=== PATIENT | female | born 1955 | race Caucasian/White ===

== ENCOUNTER → 2018-06-12 13:00 | Outpatient (CLI) | payer BC, SELFPAY | PROVIDERS: PCP Nurse Practitioner; Visit Provider Orthopaedic Surgery | DX: G56.01 Carpal tunnel syndrome, right upper limb (principal); Z01.818 Encounter for other preprocedural examination ==

== ENCOUNTER 2018-07-13 10:19 | Day surgery (SDC) | payer BC, SELFPAY ==
[2018-07-13 10:34] VITALS: BP 131/89; PULSE 99; RESP 15; TEMP 36.3; O2SAT 99
[2018-07-13] MEDS: Lactated Ringers 1,000 ML 80 ML IV (11:19)
--- NOTE | 2018-07-13 12:55 | W.PM.DSUDISC ---
Discharge Plan Disposition Patient Disposition: HOME Condition: Good Discharge Details Reason For Visit: (L) CTS Attending Provider: Epi Ngo Primary Care Provider: Danielle Ball Home Meds and New Rx's Prescriptions: New hydrocodone-acetaminophen 5-325 mg Tablet 1 tab PO Q6H PRN PRN (Reason: Pain) Qty: 0 RF: 0 No Action multivitamin [Daily Multiple] 1 EACH tablet 1 ea PO DAILY RF: 0 cyclobenzaprine 10 MG tablet 10 mg PO HS PRNRF: 0 ibuprofen 800 MG tablet 800 mg PO TID PRNRF: 0 calcium carbonate-vitamin D3 1 EACH tablet 1 ea PO DAILY RF: 0 cholecalciferol (vitamin D3) 1,000 UNIT capsule 1,000 unit PO DAILY RF: 0 escitalopram oxalate 20 MG tablet 20 mg PO DAILY RF: 0 omega-3 fatty acids-fish oil [Fish Oil] 1 EACH capsule 1 ea PO DAILY RF: 0 calcium polycarbophil [Fiber-Tabs] 625 MG tablet 625 mg PO DAILY RF: 0 alprazolam 1 MG tablet extended release 24 hr 1 mg PO HS RF: 0 vitamin B complex [B-Complex] 1 EACH tablet 1 ea PO DAILY RF: 0 aspirin 325 MG tablet 325 mg PO DAILY RF: 0 hydrocodone-acetaminophen 1 EACH tablet 1 tab PO Q6H PRN PRNQty: 7 RF: 0 Discharge Instructions Additional Instructions: Elevate L hand above heart level as much as possible overnite tonite. Wiggle fingers 10 times/hour when awake to prevent swelling. Your fingers may stay numb for 24 hours due to nerve block I put in to decrease post-op pain. Remove splint AND dressings after 48 hours and begin to move L wrist. May shower or bathe and get incision wet after you remove dressings in 48 hours. Leave incision uncovered when it is dry and sealed. Use L hand as much as your discomfort allows. Follow up in 's office in 10-14 days. Referrals: Epi Ngo MD [ [facility]] - (Follow up in 10-14 days.) Equipment/Supplies: Splint Activity:: Activity as Tolerated Remove Dressings/Wound Care:: 48 hours Shower/Bathe:: 48 hours Discharge Orders Discharge Orders: Discharge Order (Routine); Ordered 07/13/18 Ordered By: Epi Ngo DS: Diagnosis Discharge Diagnosis (1) Carpal tunnel syndrome, left: Status: Acute
[2018-07-13 13:29] VITALS: BP 139/88; PULSE 72; RESP 17; TEMP 36.4; O2SAT 99
--- NOTE | 2018-07-13 17:17 | ROE_ITS ---
DATE OF PROCEDURE: July 13, 2018 PREOPERATIVE DIAGNOSIS: Carpal tunnel syndrome left. POSTOPERATIVE DIAGNOSIS: Same. PROCEDURE: Left endoscopic carpal tunnel release. ANESTHESIA: IV Regional. SURGEON: Epi Ngo M.D. INDICATIONS: This is a 62-year-old white female with longstanding symptoms of carpal tunnel syndrome on the left. This is now interfering with her activities of daily living. She has undergone a succ essful endoscopic carpal tunnel release on the right about a month ago. She is so pleased with the r esults from the right side she now is asking to have an endoscopic carpal tunnel release on the left. The risks and complications of the procedure were explained to the patient in detail preoperatively . PROCEDURE: The patient was taken to the operating room on 07/13/18 and placed supine on the operating table. An IV regional anesthetic was administered to the left upper extremity. Once good anesthesi a was obtained, the left hand, wrist and forearm were prepped and draped free in the usual sterile fa shion. A transverse incision was made in line with the proximal flexion crease of the wrist beginning at the flexor carpi radialis tendon extending to the flexor carpi ulnaris tendon. The incision was carried down to the fascia. The palmaris longus tendon was retracted radially and a distally-based fascial flap is created to gain access to the carpal tunnel. The synovial reflector was used to free up any synovial attachments to the undersurface of the volar carpal ligament and a series of obturators were inserted to make room for the endoscope. The Shelli endoscope blade device was inserted in the carpal canal. The endoscope was positioned on the ulnar side of the canal and is advanced until the distal edge of the volar carpal ligament is clearly seen. At this point the trigger is depressed, elevatin g the blade and the elevator blade is brought out proximally through the incision, transecting the vo lar carpal ligament. Littler scissors were then used to perform a subcutaneous fasciotomy in a proxi mal direction from the incision for about the distance of two inches. A median nerve block was perfo rmed with 0.5% Marcaine with an epinephrine solution and the skin edges were infiltrated with 0.5% Ma rcaine with an epinephrine solution. The skin edges are approximated with two horizontal mattress torres tures of #4-0 nylon suture material. The wound was dressed with Xeroform gauze, sterile gauze 4x4's, wrapped with a Kerlix bandage and then wrapped with an Osman bandage. A commercial cock-up splint is applied over the dressings. The patient's IV regional anesthesia was reversed without complication. Blood loss was minimal. She was discharged to recovery room in good condition. The patient was discharged home from the Day Surgery Unit when fully recovered from her IV regional a nesthesia. She was given instructions to elevate her left hand above heart level as much as possible overnight tonight. She is encouraged to wiggle her fingers ten times an hour to prevent swelling. She is to remove her splint and dressings in 48 hours and begin to move her left wrist. She may show er or bathe and get her incision wet after 48 hours. She is to leave the incision uncovered when it is dry and sealed. She may use her left hand as much as discomfort allows. She was given a prescrip tion for pain of Hydrocodone with APAP 5/325 one tablet every six hours if needed for pain unrelieved by ibuprofen or Tylenol. She will follow-up in my office in 10 to 14 days.
== END 2018-07-13 12:51 | disposition home or self-care (01) ==
PROVIDERS: PCP Nurse Practitioner; Visit Provider Orthopaedic Surgery
PROC: 01N54ZZ Release Median Nerve, Percutaneous Endoscopic Approach (ICD-10-PCS; CPT 29848; principal; 2018-07-13 11:25)
DX: G56.02 Carpal tunnel syndrome, left upper limb (principal)
CPT/HCPCS: 29848; J0690; J1100; J1885; J2250; J2405; J3010; L3908

== ENCOUNTER 2021-06-13 09:56 | Outpatient (REF) | payer BC, SELFPAY ==
--- NOTE | 2021-06-13 09:15 | PAPFT_PTH ---
PATIENT: Fran Sauceda LOC: [facility]#:[id number] AGE/SX: 65/F ROOM: RE06/13/[address]: Danielle Ball : 1955 BED: DIS: 06/13/2021 SPEC #: [id number] RECD: 06/14/21 12:45 STATUS: LESLI REQ #: [id number] CAMERON: 06/13/21 09:[address]: Danielle Ball DEPT: COUNTS INCLUDE 234 BEDS AT THE [facility] Cytology RECD BY: Nati Lr Tissues: 1 - CX/ENDOCX FOR PAP SMEARS Procedures: PAP THIN PREP/UVM Screening HPV DNA PROBE Comments: [id number]
== END 2021-06-13 09:57 | disposition home or self-care (01) ==
LOC: LBN 09:56
PROVIDERS: PCP Nurse Practitioner; Visit Provider Nurse Practitioner
DX: Z00.00 Encounter for general adult medical examination without abnormal findings (principal); Z12.4 Encounter for screening for malignant neoplasm of cervix; Z11.51 Encounter for screening for human papillomavirus (HPV)
CPT/HCPCS: 88142; 87624

== ENCOUNTER 2022-06-17 16:17 | Outpatient (REF) | payer OTHER, SELFPAY ==
[2022-06-17 19:48] LABS: ALT 30 U/L (14-59); AST 20 U/L (15-37); Albumin 3.9 g/dL (3.4-5.0); Alkaline Phosphatase 66 U/L (46-116); Anion Gap 12.1 mmol/L (3-11); BUN 14 mg/dL (7-18); Bilirubin, Total 0.2 mg/dL (0.2-1.0); CO2 27.9 mmol/L (21.0-32.0); CREATININE 0.7 mg/dL (0.55-1.02); Calculated LDL 110 mg/dL (<100); Chloride 103 mmol/L (98-107); Cholesterol 207 mg/dL (<200); Glucose 100 mg/dL (74-106); HDL Cholesterol 75 mg/dL (40-60); Potassium 3.8 mmol/L (3.5-5.1); Sodium 143 mmol/L (136-145); Total Protein 7.4 g/dL (6.4-8.2); Triglyceride 111 mg/dL (<150)
== END 2022-06-17 16:18 | disposition home or self-care (01) ==
LOC: NCHCN 16:17
PROVIDERS: PCP Nurse Practitioner; Visit Provider Nurse Practitioner Family
DX: Z00.00 Encounter for general adult medical examination without abnormal findings (principal); M54.59 Other low back pain; M79.602 Pain in left arm; M25.561 Pain in right knee
CPT/HCPCS: 80053; 80061

== ENCOUNTER 2023-03-24 15:06 | Outpatient (REF) | payer MEDICARE, SELFPAY ==
[2023-03-24 15:37] LABS: Abs Immature Grans 0.01 10^3/uL (0.0-0.06); Absolute Basophil Count 0.05 10^3/uL (0.0-0.2); Absolute Eosinophil Count 0.21 10^3/uL (0.0-0.7); Absolute Monocyte Count 0.49 10^3/uL (0.1-0.8); Absolute Neutrophil Count 2.31 10^3/uL (1.2-6.7); Basophils % 1.2; Eosinophils % 4.9; HCT 33.6 % (36.0-46.0); HGB 10.4 g/dL (11.2-15.7); Immature Grans % 0.2; Lymphocytes % 28.1; MCH 26.1 pg (27.0-33.0); MCV 84 fL (80-95); MPV 12.2 fL (8.0-11.0); Monocytes % 11.5; Neutrophils % 54.1; Platelet Count 316 10^3/uL (130-400); RBC 3.98 10^6/uL (3.93-5.22); RDW 15.7 % (11.7-14.6); RDW-SD 48.2 fL; WBC 4.27 10^3/uL (4.4-10.8)
[2023-03-24 16:52] LABS: Iron 62 ug/dL (50-170); Total Iron Binding Capacity 472 ug/dL (250-450); Transferrin Sat 13 % (15-50)
[2023-03-24 17:35] LABS: ALT 24 U/L (14-59); AST 20 U/L (15-37); Albumin 4.1 g/dL (3.4-5.0); Alkaline Phosphatase 74 U/L (46-116); Anion Gap 8.3 mmol/L (3-11); BUN 12 mg/dL (7-18); Bilirubin, Total 0.4 mg/dL (0.2-1.0); CO2 28.7 mmol/L (21.0-32.0); CREATININE 0.8 mg/dL (0.55-1.02); Calcium 9.3 mg/dL (8.5-10.1); Chloride 104 mmol/L (98-107); Estimated GFR 81.72 (mL/min/1.73m2); Ferritin 11 ng/mL (8-252); Glucose 89 mg/dL (74-106); Potassium 4.2 mmol/L (3.5-5.1); Sodium 141 mmol/L (136-145); Total Protein 7.4 g/dL (6.4-8.2); Vitamin B12 469 pg/mL (193-986)
== END 2023-03-24 15:07 | disposition home or self-care (01) ==
LOC: NCHCN 15:06
PROVIDERS: PCP Nurse Practitioner; Visit Provider Nurse Practitioner Family
DX: R10.11 Right upper quadrant pain (principal); K82.8 Other specified diseases of gallbladder; D64.9 Anemia, unspecified; K21.9 Gastro-esophageal reflux disease without esophagitis; R19.7 Diarrhea, unspecified; Z86.39 Personal history of other endocrine, nutritional and metabolic disease
CPT/HCPCS: 80053; 82607; 82728; 83540; 83550; 85025

== ENCOUNTER → 2023-04-11 08:15 | Outpatient (BNVA) | payer MEDICARE, SELFPAY | PROVIDERS: PCP Nurse Practitioner; Referring Provider Nurse Practitioner; Visit Provider Surgery | DX: K52.9 Noninfective gastroenteritis and colitis, unspecified (principal); K82.9 Disease of gallbladder, unspecified; K82.8 Other specified diseases of gallbladder; K52.832 Lymphocytic colitis; K22.70 Barrett's esophagus without dysplasia | CPT/HCPCS: 99203; 99205 ==

== ENCOUNTER → 2023-04-28 08:22 | Outpatient (BNVA) | payer MEDICARE, SELFPAY | PROVIDERS: PCP Nurse Practitioner Family; Referring Provider Nurse Practitioner Family; Visit Provider Surgery | DX: R19.7 Diarrhea, unspecified (principal); K82.8 Other specified diseases of gallbladder | CPT/HCPCS: 99213 ==

== ENCOUNTER 2023-06-30 15:21 | Outpatient (REF) | payer MEDICARE, SELFPAY ==
[2023-06-30 15:53] LABS: Abs Immature Grans 0.01 10^3/uL (0.0-0.06); Absolute Basophil Count 0.04 10^3/uL (0.0-0.2); Absolute Eosinophil Count 0.31 10^3/uL (0.0-0.7); Absolute Lymphocyte Count 1.62 10^3/uL (1.2-3.4); Absolute Monocyte Count 0.46 10^3/uL (0.1-0.8); Absolute Neutrophil Count 3.04 10^3/uL (1.2-6.7); Basophils % 0.7; Eosinophils % 5.7; HCT 39.2 % (36.0-46.0); Immature Grans % 0.2; Lymphocytes % 29.6; MCH 30.2 pg (27.0-33.0); MCHC 33.2 % (32.0-36.0); MCV 91 fL (80-95); MPV 12.6 fL (8.0-11.0); Monocytes % 8.4; Neutrophils % 55.4; Platelet Count 305 10^3/uL (130-400); RBC 4.31 10^6/uL (3.93-5.22); RDW 14.8 % (11.7-14.6); RDW-SD 50.2 fL; WBC 5.48 10^3/uL (4.4-10.8)
[2023-06-30 16:03] LABS: ESR 6 mm/hr (0-30)
[2023-06-30 16:35] LABS: Iron 301 ug/dL (50-170); Total Iron Binding Capacity 381 ug/dL (250-450); Transferrin Sat 79 % (15-50)
[2023-06-30 16:55] LABS: Vitamin D 25 Total 53.2 ng/mL (30-100)
[2023-06-30 17:09] LABS: ALT 25 U/L (14-59); AST 19 U/L (15-37); Albumin 4.3 g/dL (3.4-5.0); Alkaline Phosphatase 74 U/L (46-116); Anion Gap 8.2 mmol/L (3-11); BUN 10 mg/dL (7-18); Bilirubin, Total 0.4 mg/dL (0.2-1.0); CO2 28.8 mmol/L (21.0-32.0); CREATININE 0.7 mg/dL (0.55-1.02); Calcium 9.4 mg/dL (8.5-10.1); Chloride 104 mmol/L (98-107); Estimated GFR 95.92 (mL/min/1.73m2); Ferritin 25 ng/mL (8-252); Glucose 101 mg/dL (74-106); Potassium 4.5 mmol/L (3.5-5.1); Sodium 141 mmol/L (136-145); TSH (W/Ref FT4) 1.82 uIU/mL (0.36-3.74); Total Protein 7.3 g/dL (6.4-8.2); Vitamin B12 501 pg/mL (193-986)
[2023-06-30 17:27] LABS: C-Reactive Protein 0.09 mg/dL (0.0-0.3)
== END 2023-06-30 15:22 | disposition home or self-care (01) ==
LOC: NCHCN 15:21
PROVIDERS: PCP Nurse Practitioner Family; Visit Provider Nurse Practitioner Family
DX: R53.83 Other fatigue (principal); D64.9 Anemia, unspecified; F41.8 Other specified anxiety disorders; K58.9 Irritable bowel syndrome, unspecified; G47.33 Obstructive sleep apnea (adult) (pediatric); Z79.899 Other long term (current) drug therapy
CPT/HCPCS: 80053; 82306; 85652; 82607; 82728; 83540; 83550; 84443; 85025; 86140

== ENCOUNTER 2023-07-24 10:05 | Outpatient (CLI) | payer MEDICARE, SELFPAY ==
--- NOTE | 2023-07-24 09:15 | DI.RAD_ITS ---
Exam(s) XR KNEE RT 3V AP,LAT,RENATO EXAM: XR KNEE RT 3V AP,LAT,RENATO CLINICAL HISTORY: right knee pain. TECHNIQUE: 2D digital imaging was performed of the right knee. Three views obtained. Merchant, AP, l ateral and PA tunnel views were obtained. COMPARISON: No exams were available for comparison FINDINGS: BONES: No acute fracture is present. No bony destructive lesion is seen. JOINTS: The knee is normally aligned. No joint effusion is seen. There is a well corticated density a djacent to the lateral tibial spine which may represent a loose body. SOFT TISSUE: Normal. IMPRESSION: No acute abnormality. DATA REPOSITORY: RADIATION DOSE DELIVERED:
--- NOTE | 2023-07-24 09:15 | DI.RAD_ITS ---
Exam(s) XR HIP RT COMPLETE AP PELVIS EXAM: XR HIP RT COMPLETE AP PELVIS CLINICAL HISTORY: right knee pain. TECHNIQUE: 2D digital imaging was performed of the right hip. Two images were obtained. AP pelvis a nd lateral right hip views were obtained. COMPARISON: CR LEFT HIP COMPLETE from 07/17/2011 FINDINGS: BONES: No acute fracture is present. No bony destructive lesion is seen. JOINTS: No dislocation present. Mild degenerative changes are seen in the hips bilaterally. The sacr oiliac joints and symphysis pubis are unremarkable. SOFT TISSUE: Normal. IMPRESSION: Mild degenerative changes in the hips bilaterally. DATA REPOSITORY: RADIATION DOSE DELIVERED:
== END 2023-07-24 10:06 | disposition home or self-care (01) ==
LOC: DIORS 10:05
PROVIDERS: PCP Nurse Practitioner Family; Referring Provider Nurse Practitioner Family
DX: M17.11 Unilateral primary osteoarthritis, right knee; M76.31 Iliotibial band syndrome, right leg; M70.61 Trochanteric bursitis, right hip
CPT/HCPCS: 20610; 73562; 99213; 73502; J1040

== ENCOUNTER → 2024-04-01 08:11 | Outpatient (BNVA) | payer MEDICARE, SELFPAY | PROVIDERS: PCP Nurse Practitioner Family; Referring Provider Nurse Practitioner Family; Visit Provider Student in an Organized Health Care Education/Training Program | DX: M17.11 Unilateral primary osteoarthritis, right knee (principal); M70.61 Trochanteric bursitis, right hip; M76.31 Iliotibial band syndrome, right leg | CPT/HCPCS: 20610; J1010 ==

== ENCOUNTER 2024-04-21 15:13 | Outpatient (CLI) | payer MEDICARE, SELFPAY ==
--- NOTE | 2024-04-21 09:15 | DI.RAD_ITS ---
Exam(s) XR SHOULDER LT COMPLETE 2+V EXAM: XR SHOULDER LT COMPLETE 2+V CLINICAL HISTORY: LEFT SHOULDER PAIN. TECHNIQUE: 2D digital imaging was performed. Three views. COMPARISON: CR LEFT SHOULDER COMPLETE from 01/22/2011 FINDINGS: BONES: No acute fracture is present. No bony destructive lesion is seen. Mild spurring at greater tub erosity. JOINTS: No dislocation present. Mild spurring at the AC joint. Spurring at the margin of the glenoi d. Glenohumeral joint space is maintained. SOFT TISSUE: Normal. IMPRESSION: Mild degenerative changes. DATA REPOSITORY: RADIATION DOSE DELIVERED:
== END 2024-04-21 15:14 | disposition home or self-care (01) ==
LOC: DIORS 15:13
PROVIDERS: PCP Nurse Practitioner Family; Referring Provider Nurse Practitioner Family; Visit Provider Student in an Organized Health Care Education/Training Program
DX: M75.102 Unspecified rotator cuff tear or rupture of left shoulder, not specified as traumatic
CPT/HCPCS: 99213; 73030

== ENCOUNTER 2024-04-29 15:00 | Outpatient (REF) | payer MEDICARE, SELFPAY ==
[2024-04-29 19:29] LABS: HCT 35.7 % (36.0-46.0); HGB 11.8 g/dL (11.2-15.7); MCH 30.4 pg (27.0-33.0); MCHC 33.1 % (32.0-36.0); MCV 92 fL (80-95); MPV 11.3 fL (8.0-11.0); Platelet Count 319 10^3/uL (130-400); RBC 3.88 10^6/uL (3.93-5.22); RDW 13.1 % (11.7-14.6); RDW-SD 44.3 fL; WBC 6.32 10^3/uL (4.4-10.8)
[2024-04-29 19:50] LABS: ALT 21 U/L (14-59); AST 16 U/L (15-37); Albumin 4.1 g/dL (3.4-5.0); Alkaline Phosphatase 57 U/L (46-116); Anion Gap 8.6 mmol/L (3-11); BUN 15 mg/dL (7-18); Bilirubin, Total 0.32 mg/dL (0.2-1.0); CO2 29.4 mmol/L (21.0-32.0); CREATININE 0.7 mg/dL (0.55-1.02); Calcium 9.4 mg/dL (8.5-10.1); Chloride 105 mmol/L (98-107); Estimated GFR 95.32 (mL/min/1.73m2); Glucose 83 mg/dL (74-106); Potassium 3.9 mmol/L (3.5-5.1); Sodium 143 mmol/L (136-145); TSH 1.47 uIU/Ml (0.36-3.74); Total Protein 7.1 g/dL (6.4-8.2)
[2024-04-29 20:14] LABS: Iron 92 ug/dL (50-170); Total Iron Binding Capacity 402 ug/dL (250-450); Transferrin Sat 23 % (15-50)
[2024-04-29 20:35] LABS: Calculated LDL 107 mg/dL (<100); Cholesterol 207 mg/dL (<200); Ferritin 18 ng/mL (8-252); HDL Cholesterol 86 mg/dL (40-60); Triglyceride 71 mg/dL (<150)
== END 2024-04-29 15:01 | disposition home or self-care (01) ==
LOC: NCHCN 15:00
PROVIDERS: PCP Nurse Practitioner Family; Visit Provider Nurse Practitioner Family
DX: Z00.00 Encounter for general adult medical examination without abnormal findings (principal)
CPT/HCPCS: 80053; 80061; 85027; 82728; 83540; 83550; 84443

== ENCOUNTER → 2024-05-07 00:39 | Outpatient (CLI) | payer MEDICARE, SELFPAY ==
--- NOTE | 2024-05-07 07:00 | DI.MRI_ITS ---
Exam(s) MR UPPER JOINT LT WO EXAM: MR UPPER JOINT LT WO CLINICAL HISTORY: L SHOULDER PAIN, LT ROTATOR CUFF TEAR, M75.102 TECHNIQUE: Multiplanar multisequence MRI of the shoulder was performed. COMPARISON: CR XR SHOULDER LT COMPLETE 2+V from 04/21/2024 FINDINGS: MARROW:There is no evidence of fracture, Hill-Sachs deformity, nor ominous osseous lesions. GLENOHUMERAL JOINT: No joint effusion nor obvious loose intra-articular bodies. No chondral defects. No osteophytes. No degenerative subarticular cysts. ROTATOR CUFF MECHANISM: AC JOINT/ACROMIUM: There are mild degenerative changes in the AC joint.. There is no evidence of os acromiale. Supraspinatus: Some tendinitis signal. There is also partial-thickness tearing of the musculotendino us junction and an area of full-thickness tear just above the greater tuberosity. No retraction evid ent. No muscle atrophy. Infraspinatus: Mild tendinitis. No tear. No atrophy. Teres Minor: Intact. No evidence of tear nor muscle atrophy. Subscapularis/anterior cuff: Intact. No abnormal signal at the level of the multipennate insertional fibers. No significant tear nor atrophy. Incidentally noted is a small degenerative subarticular cy st in the region of the lesser tuberosity. BICEPS TENDON: Exhibits normal position within the intertubercular groove. No evidence of tear. No tenosynovitis. LABRUM: No obvious labral tears nor evidence of paralabral cyst. Inferior glenohumeral ligament is intact. QUADRILATERAL SPACE: No evidence of mass in the region of the axillary nerve and dorsal circumflex hu meral vessels. Visualized triceps muscle at this level appears unremarkable. IMPRESSION: 1. There is both partial-thickness tearing at the musculotendinous junction of the supraspinatus as w ell as a small area of full-thickness tear just above the greater tuberosity. No retraction of the m usculotendinous junction. No muscle atrophy evident. Other muscles of the rotator cuff mechanism ap pear unremarkable. 2. No obvious labral tears evident on this non arthrogram study.. 3. Biceps tendon appears intact. 4. Mild degenerative changes in the AC joint. Minimal degenerative changes in the glenohumeral join t and no evidence of joint effusion or loose intra-articular bodies. DATA REPOSITORY:
== END ==
PROVIDERS: PCP Nurse Practitioner Family; Visit Provider Student in an Organized Health Care Education/Training Program
DX: M75.102 Unspecified rotator cuff tear or rupture of left shoulder, not specified as traumatic (principal)
CPT/HCPCS: 73221

== ENCOUNTER → 2024-05-10 02:30 | Outpatient (CLI) | payer MEDICARE, SELFPAY ==
--- NOTE | 2024-05-10 | DI.DEXA_ITS ---
Exam(s) XR DEXA BONE DENSITY W/WO CADY EXAM: XR DEXA BONE DENSITY W/WO CADY CLINICAL HISTORY: MENOPAUSAL N95.1 MENOPAUSAL STATE Z78.0 TECHNIQUE: COMPARISON: CR XR HIP RT COMPLETE AP PELVIS from 07/24/2023 FINDINGS: Lateral Spine Image: Unremarkable. No compression deformities identified. Right hip: Total T-Score: 0.7 Total Z-Score: 2.0 T- and Z-scores: Within normal limits. Lumbar Spine: Total T-Score: -1.2 Total Z-Score: 0.6 T- and Z-scores: Findings are consistent with osteopenia. IMPRESSION: No evidence of osteoporosis.
== END ==
PROVIDERS: PCP Nurse Practitioner Family; Visit Provider Nurse Practitioner Family
DX: M85.88 Other specified disorders of bone density and structure, other site (principal); N95.1 Menopausal and female climacteric states
CPT/HCPCS: 77080

== ENCOUNTER → 2024-05-19 11:08 | Outpatient (BNVA) | payer MEDICARE, SELFPAY | PROVIDERS: PCP Nurse Practitioner Family; Referring Provider Nurse Practitioner Family; Visit Provider Student in an Organized Health Care Education/Training Program | DX: M75.102 Unspecified rotator cuff tear or rupture of left shoulder, not specified as traumatic (principal); M75.22 Bicipital tendinitis, left shoulder | CPT/HCPCS: 99214 ==

== ENCOUNTER → 2024-05-31 00:58 | Outpatient (CLI) | payer MEDICARE, SELFPAY ==
--- NOTE | 2024-05-31 | DI.CTLCSR_ITS ---
Exam(s) CT CHEST LUNG CANCER SCREEN EXAM: CT CHEST LUNG CANCER SCREEN CLINICAL HISTORY: SCREENING FOR LUNG CA, FORMER SMOKER, Z87.891 TECHNIQUE: Imaging Protocol: Axial computed tomography images with coronal and sagittal reformatted images were created and reviewed COMPARISON: CT CT CHEST LUNG CANCER SCREEN from 07/29/2022 FINDINGS: Tracheobronchial tree: Patent where visualized. No bronchiectasis. Pulmonary parenchyma: No consolidation or dominant measurable mass. Emphysematous changes are present in the lungs. Lung Nodules: None. Mediastinum and Tracee: No dominant adenopathy or fluid collection. The esophagus is unremarkable. Thyroid gland: Unremarkable. Lymph nodes: Unremarkable. Pleura: No effusion or pneumothorax. Heart: The heart is not dilated. Mild coronary artery calcification. No pericardial effusion. Aorta: Thoracic aorta non-dilated.Atherosclerotic calcification is present. Upper abdomen: There is again seen a cyst in the left kidney. No follow-up is recommended. Soft Tissues: Unremarkable. Bones: Within normal limits. IMPRESSION: No pulmonary nodules. Lung RADS Cat 1 - Negative: No nodules and definitely benign nodules Lung-RADS 1.0 CATEGORIES: Category 0 - Prior chest CT exam(s) being located for comparison. Category 1 - Annual screening in 12 months. No nodules or definitely benign nodules. Category 2 - Annual screening in 12 months. Benign appearance. Nodules with low likelihood of becomin g active cancer. Category 3 - 6-month follow-up. Probably benign. Short-term follow-up suggested. Nodules with low lik elihood of becoming active cancer. Category 4A - 3-month follow-up and CT/PET if >8 mm in size. Suspicious finding. Findings which requi re additional testing. Category 4B - Findings which require additional testing and tissue sampling. Suspicious finding. Category 4X - Category 3 or 4 nodules with additional features or imaging findings that increases the suspicion of malignancy. Modifier S- Potentially clinically significant finding. (Non lung cancer) RADIATION DOSE DELIVERED: Total DLP Total DLP DATA REPOSITORY: All CT scans at this facility are submitted to the National Radiology Data Registry (NRDR) Dose Index Registry (DIR) with the [employer] (A[employer]). RADIATION OPTIMIZATION: All CT scans at this facility use at least one of these dose optimization te chniques: automated exposure control; mA and/or kV adjustment per patient size (includes targeted exa ms where dose is matched to clinical indication); or iterative reconstruction.
== END ==
PROVIDERS: PCP Nurse Practitioner Family; Visit Provider Nurse Practitioner Family
DX: Z12.2 Encounter for screening for malignant neoplasm of respiratory organs (principal); J43.8 Other emphysema; Z87.891 Personal history of nicotine dependence
CPT/HCPCS: 71271

== ENCOUNTER 2024-06-18 08:58 | Day surgery (SDC) | payer MEDICARE, SELFPAY ==
[2024-06-18] VITALS (39 sets, daily range): BP systolic 122–164; BP diastolic 69–117; PULSE 65–80; RESP 8–27; TEMP 36.2–36.7; O2SAT 92–98; BMI 28.6
--- NOTE | 2024-06-18 07:13 | PDOC.DSDIS_ITS ---
Date of service: 06/18/24 Time of Service: 14:00 Discharge Plan Disposition Patient Disposition: Home Condition: Stable Discharge Details Attending Provider: Sunny Patricio Primary Care Provider: CRISTIANE GRANT Home Meds and New Rx's Prescriptions: New naproxen 250 mg tablet 250 - 500 mg PO BID PRNQty: 40 0RF Rx Instructions: take with a meal oxycodone 5 mg tablet 5 - 10 mg PO Q4H MDD 30 mg PRN (Reason: moderate to severe pain) Qty: 18 0RF Continued escitalopram oxalate 10 mg tablet 10 mg PO DAILY gabapentin 100 mg capsule 200 mg PO QHS multivitamin Tablet 1 tab PO DAILY pantoprazole 40 mg tablet,delayed release (DR/EC) 40 mg PO DAILY budesonide 4 mg capsule,delayed release(DR/EC) 3 mg PO DAILY calcium carbonate-vitamin D3 1 EACH tablet 1 ea PO DAILY No Action omega 5-fju-cvz-fish oil [Fish Oil] 1,200 (144-216) mg capsule PO Discharge Instructions Additional Instructions: Surgery: Left shoulder arthroscopy with rotator cuff repair (supraspinatus), biceps tenodesis, extensive debridement, and subacromial decompression. Activity: For 6 weeks, you should keep your arm at your side in a neutral position at all times except for physical therapy. Do not try to lift or raise your arm using your own muscles. You should use the sling whenever you are out of the house. At home it is best to remove the sling and rest the arm on a pillow at your side or support the operative side with your other hand. You may allow the arm to dangle at your side. A physical therapy prescription will be sent electronically to begin in about 3 weeks. Standard protocol. Prescriptions: Naproxen 250 mg take 1-2 every 12 hours with a meal as needed for moderate pain Oxycodone 5 mg take 1-2 every 4-6 hours as needed for severe pain You may use nlmy-kde-ilydbzd Tylenol (acetaminophen) as needed for mild pain. These pain medications may be taken all at once or in different combinations as needed. Also, recommend Colace (docusate) as a stool softener as surgery and pain medicine cause constipation. You may try csld-dni-hpzbddh diphenhydramine (Benadryl) 25-50 mg nightly as a sleep aid Dressings: Remove shoulder bandage after 3 days. Leave the sticky Steri-Strips in place until they fall off or remove them after you shower. Cover the incisions with Band-Aids or leave them open to air. You may shower after 5 days. Follow-up: 10-[address] Patricio You may take off the leg compression stockings this evening at home. You may also leave them on a few days longer if you have a history of leg swelling or edema. Let us know right away if you develop any redness, drainage, fevers, chest pain, or trouble breathing. Do not drink alcohol or drive for at least 24 hours after anesthesia. Please call the office during business hours with any questions or concerns. Stand Alone Forms: Anesthesia Discharge Inst., Doyle.Nerve Block Instructions, Toni Levy (DSU) Referrals: Sunny Patricio MD [ [facility] STAFF PHYSICIAN] - 06/30/24 11:10 am Discharge Orders Discharge Orders: Discharge Order (Routine); Ordered 06/18/24 Ordered By: Giovanna Martinez DS: Diagnosis Discharge Diagnosis (1) Left rotator cuff tear: Status: Acute (2) Tendinitis of long head of biceps brachii of left shoulder: Status: Acute
--- NOTE | 2024-06-18 07:22 | ROE_ITS ---
Date of service: 06/18/24 Time of Service: 11:00 Operative Note Operative Note DATE OF PROCEDURE: 06/18/24 PRE-OP DIAGNOSIS: Left: 1. Rotator cuff tear 2. LHB tendinopathy 3. Bursitis POST-OP DIAGNOSIS: same PROCEDURE: Left: 1. Rotator cuff repair, CPT# 30682. This involved repair of the supraspinatus using anchor and sutures to reattach the rotator cuff back to the footprint of the greater tuberosity. 2. Arthroscopic biceps tenodesis, CPT# 53168. This involved arthroscopically suturing and securing the long head of the biceps tendon to the proximal humerus at the superior margin of the bicipital groove with a screw at the correct tension. 3. Extensive debridement, CPT# 33614. This involved using arthroscopic hand instruments, power instruments, and radiofrequency instruments to release the long head of the biceps tendon and debride areas of labral tearing, , SLAP tearing, anterior synovitis & capsulitis, and chondromalacia about the humeral head within the glenohumeral joint anteriorly, superiorly and posteriorly. 4. Subacromial decompression with partial acromioplasty, CPT# 33756. This involved using arthroscopic power instruments and a radiofrequency wand to complete a bursectomy and smooth the undersurface of the acromion. The assistant professor of archaeology was medically required in order to help assist in techniques above, which require positioning the arm, holding the arthroscope, and manipulating multiple instruments and sutures at the same time. This cannot be done without the help of an experienced assistant professor of archaeology. SURGEON: Sunny Patricio NETWORK ARCHITECT MANAGER: Giovanna Martinez ANESTHESIA TYPE: Local By Surgeon, General LMA/ETT and Primary Nerve Block Refer to Anesthesia Record ESTIMATED BLOOD LOSS: 5 PATHOLOGY: none sent COMPLICATIONS: None Patient was transported to: PACU Patient's condition: stable Implants: Arthrex: 4.75mm SwiveLocks x 1 Indications: The patient was diagnosed with the above conditions and appropriately indicated for surgical intervention. Please see complete medical record for details. Findings: Exam under anesthesia: Full range of motion, no instability Glenohumeral joint: Moderately significant anterior and superior synovitis. Obvious SLAP tear and biceps injection. Moderate anterior capsulitis scarring across the interval and subscapularis. Subscapularis intact. Moderate humeral head and superior chondromalacia. Obvious full-thickness fraying degenerative rotator cuff tear that was medial and trance tenderness. Moderate anterior and mild posterior labral fraying. Subacromial space: Moderate bursitis. Moderate supraspinatus tendinopathy with moderately sized medial trans tendinous tear starting medial to the footprint with tendon remnant. Progression in a triangle pattern with the split tear continuing medially to the rotator cable. Procedure Description: In the operating room, general anesthesia was induced. Bilateral shoulders were examined. The patient was positioned in the beachchair position. All bony pr ominences were well-padded. Preoperative antibiotics were administered. The shoulder was prepped and draped in the usual sterile fashion. The correct patient, procedure, and side of the procedure were all verified prior to incision. Starting through the posterior portal a standard complete diagnostic arthroscopy was performed of the glenohumeral joint including inspection of the long head of the biceps, anterior and superior labrum, subscapularis tendon, supraspinatus and infraspinatus tendons, and axillary recess. The glenoid and humeral head cartilage as well as the posterior labrum were inspected from an anterior viewing portal. Significant findings and interventions noted above. An anterior superolateral portal was made through the full-thickness rotator cuff tear. An all-arthroscopic suprapectoral biceps tenodesis was performed through an anterior portal using a Loop N Tack method with a SutureTape FiberLink cinched around and through the tendon. The biceps was tenotomized from the labrum and withdrawn to the superior aspect of the bicipital groove with a suture maintained out of the way for later repair with the rotator cuff. Starting through the posterior portal, the arthroscope was directed into the subacromial space. A lateral 50 yard line lateral portal was created. A combination of power instruments and a radiofrequency ablator were used to debride bursitis anteriorly, posteriorly, and laterally as well as expose and smooth bone spurring on the undersurface of the acromion. The coracoacromial ligament was partially released. The bursectomy was completed viewing laterally and working from posteriorly and the rotator cuff was thoroughly inspected with findings noted above. The medial supraspinatus tear was inspected, debrided of notable fraying across all margins revealed a small to moderately sized tear, which was unfortunately medial to the greater tuberosity footprint. The longitudinal split could be reduced and the defect could be closed to most medial aspect of the greater tuberosity so modified repair was done. The medial footprint adjacent to the tear was debrided of tendon remnant. The self retrieving suture passer was used to shuttle a suture tape simple stitch across the anterior and posterior leaflets and secured with SMC arthroscopic knot greatly reducing the tear size. The scorpion was then used to place an inverted horizontal mattress FiberTape with the tails brought out laterally bringing the reduced tear tissue to the prepared area on the greater tuberosity. These repair tails were brought out the anterior superior lateral portal with the biceps repair anchor. The undersized punch was used for softer bone followed by loading the tails on a 4.75 mm knotless SwiveLock anchor, which was deployed with excellent fixation strength and the greater tuberosity. The biceps was tensioned the rest of the superior aspect of the bicipital groove and the rotator cuff tissue was nicely reduced adjacent to the suture anchor along the medial aspect of the footprint. There is no additional need for the knotless repair suture. The repair was stable through range of motion and testing. The shoulder was drained of arthroscopic fluid. All portal sites were copiously irrigated. These incisions were closed using 3-0 Monocryl in a buried fashion and then covered with Mastisol, Steri-Strips, Xeroform, dry gauze, and ABDs. The dressings were covered and secured with Medipore tape. The operative extremity was placed into a sling for immobilization. The patient awoke from anesthesia without complication and was transferred to the recovery room in a stable condition.
--- NOTE | 2024-06-18 09:21 | W.ANESPRE ---
General Info Date of Service Date Performed: 06/18/24 Height: 5 ft 7 in Weight: 83.007 kg Body Mass Index (BMI): 28.6 Surgical Procedure: Operation Date: 06/18/24 10:25 Proposed Procedure Side Surgeon p Shoulder Rotator Cuff Arthroscopic w/Extensive Debridement, Biceps Tenodesis, Subacromial Decompression Left Sunny Patricio MD Meds Allergies and Home Medications Allergies Allergy/AdvReac Type Severity Reaction Status Date / Time progesterone Allergy Severe Skin Rash Verified 06/18/24 09:21 Sulfa (Sulfonamide Allergy Severe rash/hives Verified 06/18/24 09:21 Antibiotics) tramadol Allergy Intermediate Skin Rash Verified 06/18/24 09:21 codeine Allergy rash Verified 06/18/24 09:21 Home Medication ?Medication ?Instructions ?Recorded calcium carbonate 600 mg-vitamin 1 ea PO DAILY 07/03/17 D3 5 mcg (200 unit) tablet escitalopram oxalate 10 mg tablet 10 mg PO DAILY 04/11/23 gabapentin 100 mg capsule 200 mg PO QHS 04/11/23 multivitamin 1 tab PO DAILY 04/28/23 budesonide 4 mg capsule,delayed 3 mg PO DAILY 04/01/24 release pantoprazole 40 mg tablet,delayed 40 mg PO DAILY 04/01/24 release omega 0-lpy-zwq-fish oil 1,200 mg cap PO 06/18/24 (144 mg-216 mg) capsule (Fish Oil) Current Visit Medications: Current Medications Generic Name Dose Route Start Last Admin Trade Name Freq PRN Reason Stop Dose Admin Ringer's Solution 1,000 mls @ 30 mls/hr 06/18/24 06:00 IV 06/18/24 23:59 INFUSION KRYSTAL Cefazolin Sodium/Dextrose 2 gm in 50 mls @ 100 mls/hr 06/18/24 06:00 Ancef Duplex IVPB 06/18/24 23:59 PREOP KRYSTAL Tranexamic Acid/Sodium Chloride 1,000 mg in 100 mls @ 600 mls/hr 06/18/24 06:00 IVPB 06/18/24 23:59 PREOP KRYSTAL IV Miscellaneous Supplies 1 each 06/18/24 06:00 Iv Access IV 06/18/24 23:59 DIRECTED KRYSTAL Oxycodone HCl 0 mg 06/18/24 07:12 Oxycodone 5 Mg Tab PO 09/15/24 07:11 Q3H PRN PRN Pain Sodium Chloride 0 ml 06/18/24 06:00 Normal Saline Flush 10 Ml Syr IV 06/18/24 23:59 PRN PRN Sodium Chloride 0 ml 06/18/24 06:00 Normal Saline 10 Ml Vial IJ 06/18/24 23:59 DIRECTED PRN Sterile Water 0 ml 06/18/24 06:00 Water,Injection,Sterile 10 Ml Vial IJ 06/18/24 23:59 DIRECTED PRN PFSH Active Problems Active Problems: Problem Status Onset Code Tendinitis of long head of biceps brachii of left shoulder Acute M75.22 Left rotator cuff tear Acute M75.102 Trochanteric bursitis, right hip Acute M70.61 Iliotibial band syndrome, right leg Acute M76.31 Degenerative joint disease of right knee Chronic M17.11 IBS (irritable bowel syndrome) Chronic K58.9 Gallbladder sludge Acute K82.8 Lymphocytic colitis Acute K52.832 Gan's esophagus Acute K22.70 GERD (gastroesophageal reflux disease) Chronic K21.9 Urinary incontinence Acute R32 Abdominal pain Acute R10.9 Chronic diarrhea Acute K52.9 Carpal tunnel syndrome, left Acute G56.02 Medical History Medical History Low back pain Depression with anxiety Obstructive sleep apnea History of tobacco abuse Shoulder pain, left Anemia Surgical History Surgical History H/O esophagogastroduodenoscopy (~03/2023) Gan's esophagitis S/P colonoscopy (~03/2023) lymphocytic colitis polyps S/P tonsillectomy H/O tubal ligation S/P rotator cuff repair (~2004) S/P right knee arthroscopy (~2003) Tobacco Smoking/Tobacco Use Status: Former Tobacco Use Alcohol Alcohol Intake: current Alcohol intake frequency: a few times a month Substance Use Substance use: Never Substance use type: does not use Vital Signs and Lab Results Lab Results Blood Type / Crossmatch: No Data to Display Complete Blood Count: No Data to Display Complete Metabolic Panel: No Data to Display Liver Function Panel: No Data to Display Coagulation Panel: No Data to Display Cardiac Panel: No Data to Display Arterial Blood Gas: No Data to Display Venous Blood Gas: No Data to Display Pancreas Panel: No Data to Display Thyroid Panel: No Data to Display Infectious Disease: No Data to Display Blood Cultures: No Data to Display Toxicology Panel: No Data to Display Imaging and Studies Imaging and Studies Study information below may be from another EMR and interpreted by another provider. Please see original notes in EMR for more complete details. Carotid Artery Summary:: Patient Name: PACO LOCKWOOD Unit #: [id number] Loc: DI Ordering Provider: ANTHONY WEIR [employer] CONSERVATION DIRECTOR Status: REG CLI Primary Care Provider: ALIYA RAGLAND M.D. Date of Exam: 05/03/14 Sex: F : 1955 Age: 58 Exam(s) [id number] US:Carotid SYMPTOMS/DIAGNOSIS: NUMBNESS, TINGLING LT SIDE, 782.00 CAROTID ULTRASOUND: There is only a small quantity of plaque in the carotids. There is no evidence of right or left significant carotid stenosis. Antegrade flow is noted in the vertebrals. SUMMARY: No evidence of significant carotid stenosis. Please see the cerebrovascular evaluation worksheet for the complete results of this study. CC: Dictated By: SANTI AGUILAR M.D. [id number] <Electronically signed by SANTI AGUILAR M.D.> 05/04/14 0811 Transcribed By: Isaias Tong 05/03/14 1649 Technologist: This is privileged, confidential information intended only for the provider named. Any use or distribution by any person other than this provider is strictly prohibited. If you receive this report in error, please notify us immediately at [phone] and return the original report to us at the address above. Thank-you. Anesthesia Assessment and Plan Anesthesia History Personal History: No History of Anesthesia Complications Family History: No Family History of Anesthesia Complications Exercise Tolerance Exercise Tolerance: Metabolic Equivalents>4 Pertinent Negatives Pertinent Negatives: No Symptoms of GERD Cardiac & Pulmonary Exam Cardiac Exam: Normal S1/S2 Heart Sounds Pulmonary Exam: Clear Bilateral Breath Sounds Implantable Cardiac Device Does patient have a Pacemaker or an ICD?: No Airway Exam Known Difficult Airway: No Mallampati Class: 3 Mouth Opening: Narrow (< 3cm) Thyromental Distance: Greater than 3 cm Neck Range of Motion: Full ROM Neck Circumference: Normal Teeth Condition: Normal Dentition ASA Classification ASA Score: ASA 2 Emergency Case?: No NPO Status NPO Status: NPO Clears >2 hours, Solids >8 hours Anesthesia Plan Resuscitation Status: Full Code Anesthesia Technique: General Anesthesia Airway Planned: Endotracheal Tube Pain Management: Surgeon and patient request nerve block Monitors Used: Standard Monitors
[2024-06-18] MEDS: Lactated Ringers 1,000 ML 30 ML IV (09:51)
--- NOTE | 2024-06-18 10:22 | W.ANESNERVE ---
Nerve Block Single Injection Procedure Date and Time Date Performed: 06/18/24 Procedure Start: 10:06 Location Where Procedure Performed Procedure Location: Day Surgery Unit Reason Performed: Postoperative Analgesia Requesting Provider: Sunny Patricio Timeout Performed Timeout Performed: Yes Monitoring Used ECG, Blood Pressure and SpO2 Sterility Sterility: Hand Hygiene, Surgical Cap, Surgical Mask, Sterile Gloves and Chlorhexidine Sedation Given During Procedure Sedation Given (Indicate Dose Given): Versed IV Dose:: 2 mg Patient Mental Status Patient Mental Status: Sedate with meaningful communication Nerve Block 1st Nerve Block: Laterality: Left Block Type: Interscalene Ultrasound Image Saved?: Yes Needle / Catheter Used: 100mm SonoPlex II Local Anesthetic Bolus (Indicate Dose Given): Lidocaine used for local infiltration of skin, Injected in 3-5ml increments after negative blood aspiration, Bupivacaine 0.5% Dose:: 10 ml and Exparel Dose:: 10 ml Additives (Indicate Dose Given): None Ultrasound: Sterile probe cover and gel used Nerve Stimulator: Supplement to Ultrasound use, Expected parasthesia or motor response elicited and No twitch or parasthesia noted < 0.5 mA Paresthesia: Left Paresthesia Duration: Transient Procedure Tolerated: No Complications and Patient tolerated well Procedure Outcome: Successful Performed By: Chaz Michaels
[2024-06-18] MEDS: Normal Saline Flush 10 ML SYR IV (10:58)
[2024-06-18] MEDS: ceFAZolin 2 GM/50 ML BAG IVPB (11:33)
[2024-06-18] MEDS: TRANEXAMIC ACID/SOD. CHL. 1,000 MG/100 ML BAG 600 MG IVPB (11:49)
[2024-06-18] MEDS: Bupivacaine 0.25% Pres-Free W/EPI 30 ML VIAL (12:10)
[2024-06-18] MEDS: EPINEPHrine 10 MG/10 ML ML (13:00)
[2024-06-18] MEDS: fentaNYL 100 MCG/2 ML VIAL IVP ×2 (13:40→13:52)
[2024-06-18] MEDS: Ketorolac 15 MG/ML VIAL IVP (13:43)
--- NOTE | 2024-06-18 15:12 | W.ANESPOSTOP ---
Postoperative Evaluation Date, Time and Location Date Performed: 06/18/24 Time Performed: 15:12 Patient Location: Day Surgery Unit Vital Signs Most Recent Imported Vital Signs: Most Recent Vital Signs Temp Pulse Resp BP Pulse Ox 36.2 C L 76 16 145/74 H 95 06/18/24 14:24 06/18/24 14:24 06/18/24 14:24 06/18/24 14:24 06/18/24 14:24 Pain Score Most Recent Pain Score: Most Recent Pain Score Pain Level 3 06/18/24 14:24 Assessment Mental Status: Awake (Alert & Oriented to Patient Baseline) Airway and Respiratory Function: Patent airway with normal (patient baseline) respiratory exam Cardiovascular Function: Hemodynamically Stable Hydration Status: Adequately Hydrated Nausea & Vomiting: No Nausea or Vomiting Pain: Pain is tolerable per patient Peripheral Nerve Block: Regional nerve block not resolved at time of post operative discharge
== END 2024-06-18 15:38 | disposition home or self-care (01) ==
LOC: SUR 08:58
PROVIDERS: PCP Nurse Practitioner Family; Visit Provider Student in an Organized Health Care Education/Training Program
PROC: (CPT 29827; principal; 2024-06-18 10:15)
DX: M75.102 Unspecified rotator cuff tear or rupture of left shoulder, not specified as traumatic (principal); M75.22 Bicipital tendinitis, left shoulder; M75.52 Bursitis of left shoulder
CPT/HCPCS: 29827; 29828; 29823; 29826; 76942; C9290; J0131; J0665; J0690; J1100; J1171; J1885; J2001; J2250; J2371; J2405; J2704; J3010

== ENCOUNTER → 2024-06-30 10:53 | Outpatient (BNVA) | payer MEDICARE, SELFPAY | PROVIDERS: PCP Nurse Practitioner Family; Visit Provider Student in an Organized Health Care Education/Training Program | DX: Z47.89 Encounter for other orthopedic aftercare (principal); M75.22 Bicipital tendinitis, left shoulder ==

== ENCOUNTER → 2024-07-26 08:14 | Outpatient (BNVA) | payer MEDICARE, SELFPAY | PROVIDERS: PCP Nurse Practitioner Family; Referring Provider Nurse Practitioner Family | DX: M17.11 Unilateral primary osteoarthritis, right knee (principal) | CPT/HCPCS: 20610; J1010 ==

== ENCOUNTER 2024-07-30 01:08 | Outpatient (CLI) | payer MEDICARE, SELFPAY ==
--- NOTE | 2024-07-30 10:05 | DI.MAMMO_ITS ---
Exam(s) MAMMO SCREENING EXAM: MAMMO SCREENING CLINICAL HISTORY: Z12.39 Screening TECHNIQUE: Bilateral full field digital CC and MLO mammographic images were obtained with 3D tomosyn thesis and utilizing computer aided detection (CAD). COMPARISON: Available for comparison. FINDINGS: Masses/Architectural Distortion: None seen. Microcalcifications: No suspicious pleomorphic-type are seen. Skin Thickening/Nipple Retraction: None. IMPRESSION: 1. No significant interval change with no specific features of malignancy noted. 2. Unless there is more urgent need, screening mammography is recommended, as per [employer] guidelines. BI-RADS Category 1 - Negative Breast Density - Category B - Scattered areas of fibroglandular density Breast density category C or D implies that the patient has dense breast tissue. Dense breast tissue is very common and is not abnormal but dense breast tissue can make it harder to find cancer on a ma mmogram. Also, dense breast tissue may increase their breast cancer risk. This information about the result of the mammogram report was provided to the patient to raise their awareness. Use this report when you speak with the patient about their risks for breast cancer, which includes their family hist ory. At that time, you may recommend for more screening tests (Ultrasound or MRI) as they might be us eful based on their risk. A negative radiographic report should not delay biopsy if a dominant or clinically suspicious mass is present. Up to ten percent of cancers are not identified on mammography. A negative report may reinforce clinical impression. Adenosis and dense breasts may obscure an underlying neoplasm. False positive reports average 6 to 10%. Patient will receive a letter notifying them of these results.
[2024-07-30 10:31] LABS: HCT 38.3 % (36.0-46.0); HGB 12.8 g/dL (11.2-15.7); MCH 30.6 pg (27.0-33.0); MCHC 33.4 % (32.0-36.0); MCV 92 fL (80-95); MPV 9.5 fL (8.0-11.0); Platelet Count 328 10^3/uL (130-400); RBC 4.18 10^6/uL (3.93-5.22); RDW 13.1 % (11.7-14.6); RDW-SD 43.2 fL
[2024-07-30 11:38] LABS: Iron 103 ug/dL (50-170); Total Iron Binding Capacity 374 ug/dL (250-450); Transferrin Sat 28 % (15-50)
== END 2024-07-30 01:28 ==
LOC: DI 01:09
PROVIDERS: PCP Nurse Practitioner Family; Visit Provider Nurse Practitioner Family
DX: D64.9 Anemia, unspecified (principal); Z12.31 Encounter for screening mammogram for malignant neoplasm of breast
CPT/HCPCS: 36415; 77063; 77067; 85027; 83540; 83550

== ENCOUNTER → 2024-08-10 10:57 | Outpatient (BNVA) | payer MEDICARE, SELFPAY | PROVIDERS: PCP Nurse Practitioner Family; Visit Provider Student in an Organized Health Care Education/Training Program | DX: Z47.89 Encounter for other orthopedic aftercare (principal); M75.22 Bicipital tendinitis, left shoulder | CPT/HCPCS: 99024 ==

== ENCOUNTER → 2025-03-29 10:58 | Outpatient (BNVA) | payer MEDICARE, SELFPAY | PROVIDERS: PCP Nurse Practitioner Family; Referring Provider Nurse Practitioner Family; Visit Provider Student in an Organized Health Care Education/Training Program | DX: M75.102 Unspecified rotator cuff tear or rupture of left shoulder, not specified as traumatic (principal); M75.22 Bicipital tendinitis, left shoulder | CPT/HCPCS: 99213 ==

== ENCOUNTER 2025-04-15 10:57 | Outpatient (CLI) | payer MEDICARE, SELFPAY ==
--- NOTE | 2025-04-15 09:45 | DI.RAD_ITS ---
Exam(s) XR KNEE LT 4V AP,LAT,RENATO,PAT EXAM: XR KNEE LT 4V AP,LAT,RENATO,PAT CLINICAL HISTORY: left knee pain. TECHNIQUE: 2D digital imaging was performed. COMPARISON: CR XR KNEE RT 3V AP,LAT,RENATO from 07/24/2023 FINDINGS: Four views. No evidence of acute fracture. There is a small amount of increased joint fluid. No large joint effusion. There is no significant joint space narrowing. No osteophytes. No osteochondral defects. No narrowing of the patellofemoral compartment. No osseous lesions of bone density is normal. IMPRESSION: No acute osseous findings. Slight increased amount of joint fluid. DATA REPOSITORY: RADIATION DOSE DELIVERED:
== END 2025-04-15 10:58 | disposition home or self-care (01) ==
LOC: DIORS 10:58
PROVIDERS: PCP Nurse Practitioner Family; Referring Provider Nurse Practitioner Family; Visit Provider Physician Assistant
DX: M17.0 Bilateral primary osteoarthritis of knee (principal); M25.562 Pain in left knee
CPT/HCPCS: 20610; J1010; 73564

== ENCOUNTER 2025-04-18 12:06 | Outpatient (REF) | payer MEDICARE, SELFPAY | END 2025-04-18 12:07 | disposition home or self-care (01) | LOC: LBN 12:06 | PROVIDERS: PCP Nurse Practitioner Family; Visit Provider Obstetrics & Gynecology | DX: R32 Unspecified urinary incontinence (principal) | CPT/HCPCS: 87086 ==

== ENCOUNTER 2025-05-09 11:16 | Outpatient (CLI) | payer MEDICARE, SELFPAY ==
--- NOTE | 2025-05-09 11:36 | DI.RAD_ITS ---
Exam(s) XR WRIST RT COMPLETE EXAM: XR WRIST RT COMPLETE CLINICAL HISTORY: R wrist/thumb pain. TECHNIQUE: 2D digital imaging was performed. Three views. COMPARISON: No exams were available for comparison FINDINGS: BONES: No acute fracture is present. No bony destructive lesion is seen. JOINTS: There is moderate narrowing at the 1st carpal metacarpal joint with mild periarticular spurring. There is abnormal widening of the scapholunate distance consistent with ligament disruption. There is no abnormal tilt of the lunate. SOFT TISSUE: Normal. IMPRESSION: Moderate degenerative changes of the 1st carpal metacarpal joint. Scapholunate ligament disruption. DATA REPOSITORY: RADIATION DOSE DELIVERED:
== END 2025-05-09 11:17 | disposition home or self-care (01) ==
LOC: DIORS 11:16
PROVIDERS: PCP Nurse Practitioner Family; Referring Provider Nurse Practitioner Family; Visit Provider Physician Assistant
DX: M25.531 Pain in right wrist (principal); M18.11 Unilateral primary osteoarthritis of first carpometacarpal joint, right hand
CPT/HCPCS: 99213; 20604; J1010; 73110

== ENCOUNTER 2025-05-19 13:33 | Outpatient (REF) | payer MEDICARE, SELFPAY | END 2025-05-19 13:34 | disposition home or self-care (01) | LOC: LBN 13:33 | PROVIDERS: PCP Nurse Practitioner Family; Visit Provider Obstetrics & Gynecology | DX: R32 Unspecified urinary incontinence (principal) | CPT/HCPCS: 87086 ==

== ENCOUNTER 2025-06-06 01:15 | Outpatient (CLI) | payer MEDICARE, SELFPAY ==
--- NOTE | 2025-06-06 | DI.CTLCSR_ITS ---
Exam(s) CT CHEST LUNG CANCER SCREEN EXAM: CT CHEST LUNG CANCER SCREEN CLINICAL HISTORY: Ex-smoker, Z87.891-personal h/o nicotine dependence; screening TECHNIQUE: Imaging Protocol: Axial computed tomography images with coronal and sagittal reformatted images were created and reviewed. Lung Computer Aided Detection (CAD) was utilized. COMPARISON: CT CT CHEST LUNG CANCER SCREEN from 07/29/[address] CHEST LUNG CANCER SCREEN from 05/31/2024 FINDINGS: Tracheobronchial tree: Patent where visualized. No bronchiectasis. Pulmonary parenchyma: No consolidation or dominant measurable mass. There are emphysematous changes present in the lungs. Lung Nodules: There are no suspicious pulmonary nodules. Mediastinum and Tracee: No dominant adenopathy or fluid collection. The esophagus is unremarkable.There is a small hiatal hernia. Thyroid gland: Unremarkable. Lymph nodes: Unremarkable. Pleura: No effusion or pneumothorax. Heart: The heart is not dilated. No coronary artery calcifications are seen. No pericardial effusion. Aorta: Thoracic aorta non-dilated.Atherosclerotic calcification is present. Upper abdomen: There is a stable cyst in the superior pole of the left kidney. No follow-up is recommended. Soft Tissues: Unremarkable. Bones: Within normal limits. IMPRESSION: No suspicious pulmonary nodules. Lung RADS Cat 1 - Negative: No nodules and definitely benign nodules Lung-RADS 1.0 CATEGORIES: Category 0 - Prior chest CT exam(s) being located for comparison. Category 1 - Annual screening in 12 months. No nodules or definitely benign nodules. Category 2 - Annual screening in 12 months. Benign appearance. Nodules with low likelihood of becoming active cancer. Category 3 - 6-month follow-up. Probably benign. Short-term follow-up suggested. Nodules with low likelihood of becoming active cancer. Category 4A - 3-month follow-up and CT/PET if >8 mm in size. Suspicious finding. Findings which require additional testing. Category 4B - Findings which require additional testing and tissue sampling. Suspicious finding. Category 4X - Category 3 or 4 nodules with additional features or imaging findings that increases the suspicion of malignancy. Modifier S- Potentially clinically significant finding. (Non lung cancer) RADIATION DOSE DELIVERED: 31.03mGy.cm Total DLP 31.03mGy.cmTotal DLP 31.03mGy.cm Total DLP 31.03mGy.cmTotal DLP DATA REPOSITORY: All CT scans at this facility are submitted to the National Radiology Data Registry (NRDR) Dose Index Registry (DIR) with the [employer] ([employer]). RADIATION OPTIMIZATION: All CT scans at this facility use at least one of these dose optimization techniques: automated exposure control; mA and/or kV adjustment per patient size (includes targeted exams where dose is matched to clinical indication); or iterative reconstruction.
== END 2025-06-06 01:35 ==
PROVIDERS: PCP Nurse Practitioner Family; Visit Provider Nurse Practitioner Family
DX: Z12.2 Encounter for screening for malignant neoplasm of respiratory organs (principal); Z87.891 Personal history of nicotine dependence
CPT/HCPCS: 71271

== ENCOUNTER 2025-07-26 16:10 | Outpatient (REF) | payer MEDICARE, SELFPAY ==
[2025-07-26 19:59] LABS: HCT 37.7 % (36.0-46.0); HGB 12.2 g/dL (11.2-15.7); MCH 31.4 pg (27.0-33.0); MCHC 32.4 % (32.0-36.0); MCV 97 fL (80-95); MPV 10.8 fL (8.0-11.0); Platelet Count 278 10^3/uL (130-400); RBC 3.89 10^6/uL (3.93-5.22); RDW 12.7 % (11.7-14.6); RDW-SD 45.1 fL; WBC 9.58 10^3/uL (4.4-10.8)
[2025-07-26 20:00] LABS: Iron 39 ug/dL (50-170); Total Iron Binding Capacity 338 ug/dL (250-450); Transferrin Sat 12 % (15-50)
[2025-07-26 20:29] LABS: ALT 35 U/L (14-59); AST 17 U/L (15-37); Albumin 3.9 g/dL (3.4-5.0); Alkaline Phosphatase 60 U/L (46-116); Anion Gap 11.6 mmol/L (3-11); BUN 15 mg/dL (7-18); Bilirubin, Total 0.3 mg/dL (0.2-1.0); CO2 29.4 mmol/L (21.0-32.0); Calcium 9.3 mg/dL (8.5-10.1); Chloride 102 mmol/L (98-107); Estimated GFR 94.73 (mL/min/1.73m2); Ferritin 49 ng/mL (8-252); Glucose 90 mg/dL (74-106); Potassium 3.9 mmol/L (3.5-5.1); Sodium 143 mmol/L (136-145); Total Protein 6.8 g/dL (6.4-8.2)
[2025-07-27 20:00] LABS: Hepatitis C Ab w Rflx HCV PCR Negative (Negative)
== END 2025-07-26 16:11 | disposition home or self-care (01) ==
LOC: NCHCN 16:10
PROVIDERS: PCP Nurse Practitioner Family; Visit Provider Nurse Practitioner Family
DX: Z00.00 Encounter for general adult medical examination without abnormal findings (principal)
CPT/HCPCS: 80053; 85027; 86803; 82728; 83540; 83550

== ENCOUNTER 2025-08-01 02:51 | Outpatient (CLI) | payer MEDICARE, SELFPAY ==
--- NOTE | 2025-08-01 | DI.MAMMO_ITS ---
Exam(s) MAMMO SCREENING EXAM: MAMMO SCREENING CLINICAL HISTORY: SCREENING MAMMO Z12.39. TECHNIQUE: Bilateral full field digital CC and MLO mammographic images were obtained with 3D tomosynthesis and utilizing computer aided detection (CAD). COMPARISON: Prior mammograms were reviewed. FINDINGS: There has been no significant change in the appearance and distribution of the fibroglandular tissue. There are no CAD designations. There are no new spiculated masses nor malignant appearing microcalcification groups. Right breast skin mole again noted laterally. There is no significant architectural distortion nor skin thickening-retraction. IMPRESSION: No radiographic evidence of malignancy. BI-RADS Category 1 - Negative Breast Density - Category B - There are scattered areas of fibroglandular density. Breast density Category C or D implies that the patient has dense breast tissue. Dense breast tissue can make it harder to find cancer on a mammogram. Dense breast tissue is also associated with an increased risk of breast cancer. This information about the result of the mammogram report was provided to the patient to raise their awareness. Use this report when you speak with the patient about their risks for breast cancer, which includes their family history. At that time, you may recommend additional screening tests (Ultrasound or MRI) as these tests may add significant information. A negative radiographic report should not delay biopsy if a dominant or clinically suspicious mass is present. Up to ten percent of cancers are not identified on mammography. A negative report may reinforce clinical impression. Adenosis and dense breasts may obscure an underlying neoplasm. False positive reports average 6 to 10%. Patient will receive a letter notifying them of these results.
== END 2025-08-01 03:11 ==
LOC: DI 02:51
PROVIDERS: PCP Nurse Practitioner Family; Visit Provider Nurse Practitioner Family
DX: Z12.31 Encounter for screening mammogram for malignant neoplasm of breast (principal)
CPT/HCPCS: 77063; 77067; J1010

== ENCOUNTER 2025-08-10 15:55 | Outpatient (REF) | payer MEDICARE, SELFPAY ==
[2025-08-10 16:43] LABS: Glucose Negative (Negative)
[2025-08-10 16:49] LABS: C & S Indicated? Yes; RBC 20-50 HPF (0-2); WBC 20-50 HPF (0-5)
== END 2025-08-10 15:56 | disposition home or self-care (01) ==
LOC: LBN 15:55
PROVIDERS: PCP Nurse Practitioner Family; Visit Provider Nurse Practitioner Women's Health
DX: R30.0 Dysuria (principal)
CPT/HCPCS: 87077; 81003; 81015; 87086; 87186

== ENCOUNTER → 2025-08-12 10:57 | Outpatient (BNVA) | payer MEDICARE, SELFPAY | PROVIDERS: PCP Nurse Practitioner Family; Referring Provider Nurse Practitioner Family; Visit Provider Physician Assistant | DX: M18.11 Unilateral primary osteoarthritis of first carpometacarpal joint, right hand (principal) | CPT/HCPCS: 20604; J1010 ==